=== PATIENT | male | born 1965 | race Caucasian/White ===

== ENCOUNTER 2016-09-12 20:07 | Emergency (ER) | payer MEDICAID ==
--- NOTE | 2016-09-12 20:37 | EDPHY ---
H & P Time Seen by Provider: 09/12/16 20:30 HPI/ROS: CHIEF COMPLAINT: Fever HISTORY OF PRESENT ILLNESS: The patient is a 50 year old male with esophageal cancer, presenting with fever that started around 5:30 p.m. this evening. The patient had last chemotherapy treatment 2 days ago. This evening he felt chilled with full body aches. He had a temperature of 100.7. Ongoing nausea since chemo, associated with decreased oral intake. The patient states this is his third fever since the beginning of the year. He is on his second round of chemotherapy. He receives chemotherapy once per week. This week he had radiation and chemotherapy. He did not receive flu vaccination this year. No sore throat, runny nose, cough, abdominal pain. REVIEW OF SYSTEMS: Aside from elements discussed in the HPI, a comprehensive 10-point review of systems was reviewed and is negative. Past Medical/Surgical History: Esophageal cancer, [place] 2006, Cardiac stents x3, Rotator cuff surgery, Back pain. Social History: Family at bedside. Smoking Status: Former smoker Physical Exam: General Appearance: Alert, nontoxic appearing Eyes: Pupils equal and round, no conjunctival pallor or injection ENT, Mouth: Mucous membranes moist Neck: Normal inspection Respiratory: Lungs are clear to auscultation Cardiovascular: Regular rate and rhythm Gastrointestinal: Abdomen is soft and non-tender Neurological: A&O, nonfocal exam Skin: Warm and dry, no rash Extremities: Nontender, no pedal edema Psychiatric: Mood and affect normal Constitutional: Initial Vital Signs Temperature (C) 37.3 C 09/12/16 20:09 Heart Rate 103 H 09/12/16 20:09 Respiratory Rate 18 09/12/16 20:09 Blood Pressure 96/72 L 09/12/16 20:09 O2 Sat (%) 94 09/12/16 20:09 O2 Delivery Mode Room Air Allergies/Adverse Reactions: haloperidol [Haloperidol] Allergy (Severe, Verified 09/12/16 20:13) Other-Enter Comments Home Medications: Medication Instructions Recorded Aspirin 06/01/16 Crestor 06/01/16 DEXILANT 06/01/16 Herbals/Supplements -Info Only 06/01/16 Lisinopril 06/01/16 Metoprolol Succinate 06/01/16 Plavix 06/01/16 TRILIPIX 06/01/16 oxyCODONE CR 09/30/16 Carboplatin 09/12/16 TaxoL 09/12/16 Medical Decision Making - Diagnostics Imaging: Study: X-ray of the chest was obtained. Results: No acute disease. Images were interpreted by the radiologist, Dr. Méndez. I viewed the images myself on the PACS system. ED Course/Re-evaluation: This patient presents with a low-grade fever. He is not neutropenic and there are no localizing signs of infection. Antibiotics are not indicated at this point. He also presents with dehydration related to nausea and chemotherapy. His blood pressure was slightly low on arrival and feel that this is most likely secondary to dehydration. IV normal saline 1 L was given. He felt better after IV fluids and his blood pressure normalized. He did not take nausea medications today and was encouraged to take nausea medicine tomorrow so that he could tolerate oral fluids well. He was encouraged to follow up with his oncologist tomorrow for recheck. Differential Diagnosis: Differential diagnosis includes UTI, pyelonephritis, pneumonia cholecystitis, influenza, cellulitis. - Data Points Laboratory Results: Laboratory Results 09/12/16 21:25 09/12/16 21:25 Medications Given: Discontinued Medications Acetaminophen (Tylenol) 650 mg PO EDNOW ONE Stop: 09/12/16 20:54 Last Admin: 09/12/16 21:12 Dose: 650 mg Sodium Chloride (Ns) 1,000 mls @ 0 mls/hr IV ONCE ONE PRN Reason: Wide Open Stop: 09/12/16 20:53 Last Admin: 09/12/16 21:35 Dose: 1,000 mls Departure - Departure Disposition: Home, Routine, Self-Care Clinical Impression: Fever Qualifiers: Fever type: other Qualifier Code: (R50.81) Fever presenting with conditions classified elsewhere Condition: Good Instructions: Fever in Adults (ED) Additional Instructions: Take Tylenol as needed for continued fever. Followup with your oncologist in 1-2 days. Return to the Emergency Department if symptoms worsen. Referrals: Susan Celis PA [Primary Care Provider] - As per Instructions Report Scribed for: Oanh Martinez Report Scribed by: Michaelle Spencer Date of Report: 09/12/16 Time of Report: 20:37 Physician Review and Approval Statement: 09/12/16 20:37 Portions of this note were transcribed by a certified medical technician assistant. I personally performed the history, physical exam, and medical decision-making; and confirmed the accuracy of the information in the transcribed note.
[2016-09-12] MEDS ORDERED: LETS SOLN TOPICAL 1 EA SYR TP ONE (20:51)
[2016-09-12] MEDS ORDERED: NS 1,000 ML IV ONE (20:52)
[2016-09-12] MEDS ORDERED: ACETAMINOPHEN 325 MG TAB PO ONE (20:53)
[2016-09-12 21:03] LABS: COLOR AMBER; LEUKOCYTE ESTERASE,URINE NEGATIVE (NEGATIVE); NITRITE,URINE NEGATIVE (NEGATIVE)
[2016-09-12 21:09] LABS: MUCUS 4+ /lpf (NONE-1+); RBC,URINE 25-50 /hpf (0-3)
[2016-09-12 21:17] VITALS: O2SAT 94
[2016-09-12 21:44] LABS: % IMMATURE GRANULYOCYTES 0.5 % (0.0-1.1); ABSOLUTE IMMATURE GRANULOCYTES 0.11 10^3/uL (0.00-0.10); ADD DIFF? NO; ADD MORPH? NO; ADD SCAN? NO; ATYPICAL LYMPHOCYTE FLAG 0 (0-99); FRAGMENT RBC FLAG 20 (0-99); HEMOGLOBIN 14.6 g/dL (13.7-17.5); LEFT SHIFT FLG 0 (0-99); LIPEMIA HEMOLYSIS FLAG 90 (0-99); MEAN CELL HEMOGLOBIN 28.8 pg (27.9-34.1); MEAN CELL HEMOGLOBIN CONCENTR. 34.8 g/dL (32.4-36.7); MEAN CELL VOLUME 82.8 fL (81.5-99.8); MEAN PLATELET VOLUME 10.2 fL (8.7-11.7); PLATELET CLUMPS FLAG 10 (0-99); PLATELET COUNT 202 10^3/uL (150-400); RED BLOOD CELL COUNT 5.07 10^6/uL (4.40-6.38); RED CELL DISTRIBUTION WIDTH 19.4 % (11.5-15.2)
--- NOTE | 2016-09-12 21:46 | DX ---
PA and Lateral Chest History: Fever and chills in a 50-year-old male recently treated with chemotherapy; meets sepsis cielo leong. Findings: The heart and mediastinal contours are normal. Pulmonary vascularity is normal. A tunneled right subclavian central venous catheter is in place. There is central peribronchial thickening. Mini mal streaky perihilar opacities are seen. There are no alveolar opacities seen to suggest pneumonia. Impression: Findings most consistent with bronchitis or viral pneumonitis are noted.
[2016-09-12 22:01] LABS: ANION GAP 14 mEq/L (8-16); CALCIUM 9.6 mg/dL (8.5-10.4); CARBON DIOXIDE 22 mEq/l (22-31); CHLORIDE 102 mEq/L (97-110); CREATININE 0.8 mg/dL (0.7-1.3); GLOMERULAR FILTRATION RATE > 60; GLUCOSE 104 mg/dL (70-100); POTASSIUM 4.3 mEq/L (3.5-5.2); SODIUM 138 mEq/L (134-144)
[2016-09-12 22:10] VITALS: BP 109/67; PULSE 80; RESP 20; TEMP 99
== END 2016-09-12 22:45 | disposition home or self-care (01) ==
DX: R50.9 Fever, unspecified (principal); C15.9 Malignant neoplasm of esophagus, unspecified; Z79.01 Long term (current) use of anticoagulants; Z79.82 Long term (current) use of aspirin; Z87.891 Personal history of nicotine dependence; I25.10 Atherosclerotic heart disease of native coronary artery without angina pectoris; I25.2 Old myocardial infarction; Z95.5 Presence of coronary angioplasty implant and graft

== ENCOUNTER 2017-01-31 01:42 | Emergency (ER) | payer MEDICAID ==
[2017-01-31] MEDS ORDERED: HYDROmorphONE/DILAUDID 1 MG/ML SYR IVP ONE ×5 (02:11→07:18)
[2017-01-31] MEDS ORDERED: NS 1,000 ML IV ONE ×2 (02:11→04:40)
[2017-01-31] MEDS ORDERED: ONDANSETRON 4 MG/2 ML VIAL IVP ONE (02:11)
--- NOTE | 2017-01-31 02:11 | EDPHY ---
H & P Stated Complaint: ABD PAIN ALL OVER STARTING TONIGHT HPI/ROS: HPI CHIEF COMPLAINT: Abdominal pain HISTORY OF PRESENT ILLNESS: Patient very pleasant 51-year-old male significant past medical history for stage IV esophageal cancer could not undergoing any chemotherapy at this time, presents emergency room with sudden onset of diffuse abdominal pain 10/10 severe crampy in nature that started around 11:00 p.m.. Has associated nausea. No chest pain or shortness of breath. No fever. Did have chills. States he had a normal bowel movement tonight. Past Medical History: Esophageal cancer, cardiac stents, rotator cuff, chronic pain, takes morphine Past Surgical History: Abdominal feeding tube Social History: Denies daily use drugs alcohol tobacco products Family History: Noncontributory ROS REVIEW OF SYSTEMS: A comprehensive 10 point review of systems is otherwise negative aside from elements mentioned in the history of present illness. Exam Constitutional triage nursing summary reviewed, vital signs reviewed, awake/ alert. Eyes normal conjunctivae and sclera, EOMI, PERRLA. HENT normal inspection, atraumatic, moist mucus membranes, no epistaxis, neck supple/ no meningismus, no raccoon eyes. Respiratory clear to auscultation bilaterally, normal breath sounds, no respiratory distress, no wheezing. Cardiovascular rate normal, regular rhythm, no murmur, no edema, distal pulses normal. Gastrointestinal tender palpation diffusely, no peritoneal signs, feeding tube in place, no signs of infection around the feeding tube, normal bowel sounds, no distension, no pulsatile mass. Genitourinary no CVA tenderness. Musculoskeletal no midline vertebral tenderness, full range of motion, no calf swelling, no tenderness of extremities, no meningismus, good pulses, neurovascularly intact. Skin pink, warm, & dry, no rash, skin atraumatic. Neurologic awake, alert and oriented x 3, AAOx3, moves all 4 extremities equally, motor intact, sensory intact, CN II-XII intact, normal cerebellar, normal vision, normal speech. Psychiatric normal mood/affect. Heme/Lymph/Immune no lymphadenopathy. Differential diagnosis includes but is not limited to and in no particular order : Bowel obstruction, appendicitis, gallbladder disease, diverticulitis, colitis , enteritis, perforated viscus, gastritis, GERD, esophagitis, urinary tract infection, pyelonephritis, kidney stones Medical Decision Making: Plan for this patient IV establishment, IV fluid bolus , IV Zofran for nausea, IV Dilaudid for acute pain control 2 mg. Check lactic acid, CT scan abdomen pelvis with IV contrast. Re-evaluation: 0358: CT scan of the abdomen pelvis with IV contrast The results of the study are this shows either enteritis or a mild small-bowel obstruction the distal ileum has some dilated areas of bowel loops. Otherwise no free air, no free fluid. Otherwise no acute inflammatory process except the distal esophagus consistent with esophageal cancer The study was read by Dr. Grace I viewed the images myself on the PACS system. 0507AM: Re-examination this time patient still having ongoing abdominal pain. No vomiting here. No diarrhea. Blood work and CT been reviewed. I will consult General surgery for this patient's possible SBO versus enteritis. Patient is requiring IV pain medicine. 0511AM: I have consult General surgery for evaluation of this patient's abdominal pain enteritis versus SBO. Dr. Ceron will come and see and evaluate the patient. 0553AM: Dr. Ceron: Has seen evaluated the patient. He recommends this patient does get admitted for observation bowel rest IV fluids and pain control. He also recommends this patient gets transferred to [facility] he is followed there for esophageal cancer. Dr. Lobo Sibley has accepted this patient to [facility]. I have discussed this with the patient and tell form filled out. Appropriate transfer be set up. Reason for transfer ongoing abdominal pain. Source: Patient - Personal History Current Tetanus/Diphtheria Vaccine: Yes Current Tetanus Diphtheria and Acellular Pertussis (TDAP): Yes - Medical/Surgical History Hx Asthma: No Hx Chronic Respiratory Disease: No Hx Diabetes: No Hx Cardiac Disease: Yes Hx Renal Disease: No Hx Cirrhosis: No Hx Alcoholism: No Hx HIV/AIDS: No Hx Splenectomy or Spleen Trauma: No Other PMH: [place] 2006, cardiac stent x 3, rotator cuff surgery, back pain, esophageal ca, - Social History Smoking Status: Former smoker Constitutional: Initial Vital Signs Temperature (C) 36.7 C 01/31/17 01:49 Heart Rate 68 01/31/17 01:49 Respiratory Rate 16 01/31/17 01:49 Blood Pressure 113/79 01/31/17 01:49 O2 Sat (%) 97 01/31/17 01:49 O2 Delivery Mode Room Air Allergies/Adverse Reactions: haloperidol [Haloperidol] Allergy (Severe, Verified 01/31/17 01:51) Other-Enter Comments Home Medications: Medication Instructions Recorded Omeprazole [Prilosec 20 mg] 20 mg PO DAILY 01/31/17 morphINE [Roxanol 10 mg/0.5 ml 30 mg PO Q2 01/31/17 oral soln (*)] Medical Decision Making - Data Points Laboratory Results: Laboratory Results 01/31/17 02:35 01/31/17 02:11 01/31/17 01/31/17 01/31/17 02:50 02:45 02:35 WBC RBC Hgb Hct MCV MCH MCHC RDW Plt Count MPV Neut % (Auto) Lymph % (Auto) [place] % (Auto) Eos % (Auto) Baso % (Auto) Nucleat RBC Rel Count Absolute Neuts (auto) Absolute Lymphs (auto) Absolute Monos (auto) Absolute Eos (auto) Absolute Basos (auto) Absolute Nucleated RBC Immature Gran % Immature Gran # PT 12.9 SEC SEC (12.0-15.0) INR 0.98 (0.83-1.16) APTT 22.3 SEC L SEC (23.0-38.0) VBG Lactic Acid 1.3 mmol/L mmol/L (0.7-2.1) Sodium Potassium Chloride Carbon Dioxide Anion Gap BUN Creatinine Estimated GFR Glucose Calcium Total Bilirubin Conjugated Bilirubin Unconjugated Bilirubin AST ALT Alkaline Phosphatase Troponin I Total Protein Albumin Lipase Urine Color YELLOW Urine Appearance TURBID Urine pH 8.0 H (5.0-7.5) Ur Specific [place] 1.019 (1.002-1.030) Urine Protein NEGATIVE (NEGATIVE) Urine Ketones NEGATIVE (NEGATIVE) Urine Blood NEGATIVE (NEGATIVE) Urine Nitrate NEGATIVE (NEGATIVE) Urine Bilirubin NEGATIVE (NEGATIVE) Urine Urobilinogen NEGATIVE EU EU (0.2-1.0) Ur Leukocyte Esterase NEGATIVE (NEGATIVE) Urine Glucose NEGATIVE (NEGATIVE) 01/31/17 01/31/17 01/31/17 02:35 02:35 02:11 WBC 9.39 10^3/uL 10^3/uL (3.80-9.50) RBC 4.69 10^6/uL 10^6/uL (4.40-6.38) Hgb 13.2 g/dL L g/dL (13.7-17.5) Hct 39.6 % L % (40.0-51.0) MCV 84.4 fL fL (81.5-99.8) MCH 28.1 pg pg (27.9-34.1) MCHC 33.3 g/dL g/dL (32.4-36.7) RDW 12.8 % % (11.5-15.2) Plt Count TNP MPV TNP Neut % (Auto) 84.2 % H % (39.3-74.2) Lymph % (Auto) 6.6 % L % (15.0-45.0) [place] % (Auto) 7.1 % % (4.5-13.0) Eos % (Auto) 1.6 % % (0.6-7.6) Baso % (Auto) 0.3 % % (0.3-1.7) Nucleat RBC Rel Count 0.0 % % (0.0-0.2) Absolute Neuts (auto) 7.90 10^3/uL H 10^3/uL (1.70-6.50) Absolute Lymphs (auto) 0.62 10^3/uL L 10^3/uL (1.00-3.00) Absolute Monos (auto) 0.67 10^3/uL 10^3/uL (0.30-0.80) Absolute Eos (auto) 0.15 10^3/uL 10^3/uL (0.03-0.40) Absolute Basos (auto) 0.03 10^3/uL 10^3/uL (0.02-0.10) Absolute Nucleated RBC 0.00 10^3/uL 10^3/uL (0-0.01) Immature Gran % 0.2 % % (0.0-1.1) Immature Gran # 0.02 10^3/uL 10^3/uL (0.00-0.10) PT INR APTT VBG Lactic Acid REJ Sodium 139 mEq/L mEq/L (134-144) Potassium 3.6 mEq/L mEq/L (3.5-5.2) Chloride 105 mEq/L mEq/L (97-110) Carbon Dioxide 24 mEq/l mEq/l (22-31) Anion Gap 10 mEq/L mEq/L (8-16) BUN 11 mg/dL mg/dL (7-23) Creatinine 0.6 mg/dL L mg/dL (0.7-1.3) Estimated GFR > 60 Glucose 130 mg/dL H mg/dL (70-100) Calcium 9.7 mg/dL mg/dL (8.5-10.4) Total Bilirubin 0.8 mg/dL mg/dL (0.1-1.4) Conjugated Bilirubin 0.4 mg/dL mg/dL (0.0-0.5) Unconjugated Bilirubin 0.4 mg/dL mg/dL (0.0-1.1) AST 24 IU/L IU/L (17-59) ALT 33 IU/L IU/L (21-72) Alkaline Phosphatase 116 IU/L IU/L (38-126) Troponin I < 0.012 ng/mL ng/mL (0-0.034) Total Protein 7.4 g/dL g/dL (6.3-8.2) Albumin 4.2 g/dL g/dL (3.5-5.0) Lipase 31.0 IU/L IU/L (23-300) Urine Color Urine Appearance Urine pH Ur Specific [place] Urine Protein Urine Ketones Urine Blood Urine Nitrate Urine Bilirubin Urine Urobilinogen Ur Leukocyte Esterase Urine Glucose Medications Given: Discontinued Medications Hydromorphone HCl (Dilaudid) 0.5 mg IVP EDNOW ONE Stop: 01/31/17 02:12 Last Admin: 01/31/17 04:28 Dose: Not Given Hydromorphone HCl (Dilaudid) 2 mg IVP EDNOW ONE Stop: 01/31/17 02:19 Last Admin: 01/31/17 03:02 Dose: 2 mg Hydromorphone HCl (Dilaudid) 2 mg IVP EDNOW ONE Stop: 01/31/17 04:13 Last Admin: 01/31/17 04:27 Dose: 2 mg Sodium Chloride (Ns) 1,000 mls @ 0 mls/hr IV ONCE ONE PRN Reason: Wide Open Stop: 01/31/17 02:12 Last Admin: 01/31/17 02:40 Dose: 1,000 mls Sodium Chloride (Ns) 1,000 mls @ 0 mls/hr IV ONCE ONE PRN Reason: Wide Open Stop: 01/31/17 04:41 Last Admin: 01/31/17 04:40 Dose: 1,000 mls Ondansetron HCl (Zofran) 4 mg IVP EDNOW ONE Stop: 01/31/17 02:12 Last Admin: 01/31/17 02:45 Dose: 4 mg Departure - Departure Disposition: Acute Care Hospital [facility] Clinical Impression: Abdominal pain Qualifiers: Abdominal location: generalized Qualified Code(s): R10.84 - Generalized abdominal pain Condition: Fair Referrals: [facility] [Other] - As per Instructions
[2017-01-31] MEDS ORDERED: IOPAMIDOL (ISOVUE-300) 100 ML BTL ONE (02:25)
[2017-01-31 02:44] LABS: % IMMATURE GRANULYOCYTES 0.2 % (0.0-1.1); ABSOLUTE IMMATURE GRANULOCYTES 0.02 10^3/uL (0.00-0.10); ADD DIFF? NO; ADD MORPH? NO; ADD SCAN? YES; ATYPICAL LYMPHOCYTE FLAG 0 (0-99); FRAGMENT RBC FLAG 0 (0-99); HEMATOCRIT 39.6 % (40.0-51.0); HEMOGLOBIN 13.2 g/dL (13.7-17.5); LEFT SHIFT FLG 0 (0-99); LIPEMIA HEMOLYSIS FLAG 80 (0-99); MEAN CELL HEMOGLOBIN 28.1 pg (27.9-34.1); MEAN CELL HEMOGLOBIN CONCENTR. 33.3 g/dL (32.4-36.7); MEAN CELL VOLUME 84.4 fL (81.5-99.8); RED BLOOD CELL COUNT 4.69 10^6/uL (4.40-6.38); RED CELL DISTRIBUTION WIDTH 12.8 % (11.5-15.2)
[2017-01-31 02:47] LABS: PLATELET CLUMPS FLAG 300 (0-99)
[2017-01-31 02:53] LABS: INR 0.98 (0.83-1.16); PROTIME(PATIENT) 12.9 SEC (12.0-15.0)
[2017-01-31 02:54] LABS: APTT 22.3 SEC (23.0-38.0)
[2017-01-31 02:54] LABS: COLOR YELLOW; LEUKOCYTE ESTERASE,URINE NEGATIVE (NEGATIVE); NITRITE,URINE NEGATIVE (NEGATIVE)
[2017-01-31 03:11] LABS: ALANINE AMINOTRANSFERASE 33 IU/L (21-72); ALBUMIN 4.2 g/dL (3.5-5.0); ALKALINE PHOSPHATASE 116 IU/L (38-126); ANION GAP 10 mEq/L (8-16); ASPARTATE AMINOTRANSFERASE 24 IU/L (17-59); BILIRUBIN,TOTAL 0.8 mg/dL (0.1-1.4); BILIRUBIN-CONJUGATED 0.4 mg/dL (0.0-0.5); BILIRUBIN-UNCONJUGATED 0.4 mg/dL (0.0-1.1); CALCIUM 9.7 mg/dL (8.5-10.4); CARBON DIOXIDE 24 mEq/l (22-31); CHLORIDE 105 mEq/L (97-110); CREATININE 0.6 mg/dL (0.7-1.3); GLOMERULAR FILTRATION RATE > 60; GLUCOSE 130 mg/dL (70-100); POTASSIUM 3.6 mEq/L (3.5-5.2); SODIUM 139 mEq/L (134-144); TOTAL PROTEIN 7.4 g/dL (6.3-8.2)
[2017-01-31 03:22] LABS: TROPONIN I < 0.012 ng/mL (0-0.034)
[2017-01-31 03:45] LABS: SCAN NEGATIVE
--- NOTE | 2017-01-31 06:15 | PDCONSULT ---
[employer] Note: Acute Care Surgery Consult Luis is a 51 y/o male with known stage IV esophogeal cancer treated at [facility] with chemo-radiation. He completed therapy in December and recently travelled to [place]. He came back on Saturday and slept all day yesterday. He awoke at around midnight last night with abdominal pain and came to the ED at [facility] and was seen by Dr. Mcconnell. After obtaining lab and imaging studies surgical consultation was requested. Luis reports the pain to be upper/central in location. He reports nausea but denies diarrhea. He has had no fever. PMH: gastro-jejunal tube placement all: Haldol former smoker/drinker, reports drinking in [place]-but not to excess SH: here with mother ROS: + weight loss related to treatment + chronic thoracic pain requiring Morphine PE: chronically ill appearing male Negative icterus/adenopathy Lungs: clear CVS: RRR abd: soft/hypoactive bowel sounds diffuse mild upper abdominal tenderness without guarding no focal tenderness, no RLQ tenderness, negative Rovsing's sign no mass indwelling feeding tube epigastrium CT reviewed: gastro-jejunal tube in place and without complication liver/GB normal, pancreas normal, small appendicolith without dede-appendiceal inflammation mild distal ileal wall thickening/inflammation c/w enteritis-cannot exclude ischemia wbc/CMP wnl Imp: abdominal pain unclear etiology/non-surgical abdomen-incidental appendicolith/possible enteritis stage IV esophogeal CA with indwelling gastrojejunal tube Rec: admit for observation, IV fluids and comfort measures\ no beds available at [facility] currently I recommended transfer to [facility] for further care and management Morris Ceron MD, FACS
[2017-01-31 06:58] VITALS: RESP 16
[2017-01-31 07:29] VITALS: BP 122/72; PULSE 53; TEMP 97.3; O2SAT 98
== END 2017-01-31 07:39 | disposition short-term general hospital (02) ==
DX: R10.84 Generalized abdominal pain (principal); Z85.01 Personal history of malignant neoplasm of esophagus; Z87.891 Personal history of nicotine dependence; Z95.5 Presence of coronary angioplasty implant and graft
CPT/HCPCS: 96374; J1170; J2405; Q9967

== ENCOUNTER 2017-02-10 13:45 | Emergency (ER) | payer MEDICAID ==
[2017-02-10 13:54] VITALS: TEMP 97.9
--- NOTE | 2017-02-10 14:55 | EDPHY ---
H & P Time Seen by Provider: 02/10/17 14:16 HPI/ROS: CHIEF COMPLAINT: Nausea, vomiting HISTORY OF PRESENT ILLNESS: Patient is a 51-year-old male with esophageal cancer on palliative care who presents to the emergency department with nausea and vomiting. Patient states he was horsing around with a friend last evening and fell striking the ground with his right side and right face. He felt dazed but did not lose consciousness. He has a mild headache. No neck pain Patient states he began to feel nauseated yesterday prior to the fall after eating popcorn. The patient has a feeding tube in place that is on a pump 24 hours a day. He is able to still tolerate solid foods. Last night he developed increased nausea and vomiting. Patient also reports pus discharge from around his feeding tube. This started after he last had his tube changed last . He has mild abdominal discomfort. No fevers or chills. REVIEW OF SYSTEMS: My complete review of systems is negative except as mentioned in the HPI. Past Medical/Surgical History: Includes esophageal cancer, ACS, acute LA, Past surgical history: Includes cardiac stent, rotator cuff repair Smoking Status: Former smoker Physical Exam: Vitals noted GENERAL: Well-appearing, in no acute distress, alert. Green aragon. HEENT: Eyes normal to inspection, normal pharynx, no signs of dehydration. NECK: No thyromegaly, no lymphadenopathy, supple. RESPIRATORY: Clear to auscultation bilaterally, no rales, rhonchi or wheezing. CVS: Regular rate and rhythm, no rubs, murmurs, or gallops. ABDOMEN: Soft, feeding tube in place, pus discharge around the tube, No erythema, nondistended, no organomegaly. BACK: Normal to inspection, no CVA tenderness. SKIN: Normal color, no rash, warm, dry. No pallor. EXTREMITIES: No pedal edema, no calf tenderness, no Homans sign or cords, no joint swelling. NEURO/PSYCH: Alert and oriented, normal mood and affect, normal motor sensory exam. Constitutional: Initial Vital Signs Temperature (C) 36.6 C 02/10/17 13:50 Heart Rate 78 02/10/17 13:50 Respiratory Rate 18 02/10/17 13:50 Blood Pressure 104/68 02/10/17 13:50 O2 Sat (%) 92 02/10/17 13:50 O2 Delivery Mode Room Air Allergies/Adverse Reactions: haloperidol [Haloperidol] Allergy (Severe, Verified 02/10/17 13:48) Other-Enter Comments Home Medications: Medication Instructions Recorded Omeprazole [Prilosec 20 mg] 20 mg PO DAILY 01/31/17 morphINE [Roxanol 10 mg/0.5 ml 30 mg PO Q2 01/31/17 oral soln (*)] Medical Decision Making - Diagnostics Imaging Results: Imaging Impressions Abdomen CT 02/10/17 14:57 Impression: 1. Distal esophageal cancer, with fluid and thickening of the distal esophagogastric junction. 2. Jejunostomy tube in the distal duodenum. 3. No small bowel obstruction or colonic obstruction. 4. Mild constipation. Findings and recommendations discussed with Emergency Department physician, Funmi Yost M.D., at 1727 hours, on February 10, 2017. Final report concurs with initial preliminary interpretation. Head CT 02/10/17 14:57 Impression: 1. Normal CT brain, without contrast. 2. No epidural or subdural hematoma. Findings and recommendations discussed with Emergency Department physician, Funmi Yost M.D., at 1723 hours, on February 10, 2017. Final report concurs with initial preliminary interpretation. ED Course/Re-evaluation: In the emergency department I met the patient on arrival. I discussed the plan with the patient. IV was placed. Patient had laboratory studies drawn. Head CT was ordered due to the fall. Patient had an abdominal pelvic CT due to his feeding tube in the pus discharge. Patient was given Zofran 4 mg IV. I reviewed the patient's laboratory studies. He was mildly anemic. White count was normal. Chemistry panel is unremarkable. Urine was negative. Lipase was 16. CT of the abdomen pelvis: Please refer to the dictated report. The patient has no abscess or lesion noted. The tube appears to be in correct placement. I discussed the results with the patient. I answered all his questions. I paged Dr. Redd to inform of the pus discharge around the tube. Dr. Redd was re-paged. I spoke with Dr. Weiss who was on-call for Dr. Redd. I described the presentation and the findings. He recommended having the patient follow up with Dr. Redd's office. He felt the patient could be d/c from the ED. Patient's dressing was changed. I rechecked the patient on numerous occasions. He was stable throughout his stay. Differential Diagnosis: My differential includes but is not limited to subarachnoid hemorrhage, subdural hematoma, epidural hematoma, concussion, small-bowel obstruction, perforation, feeding to malfunction, cellulitis, abscess, bacteremia, sepsis, electrolyte abnormality, sugar abnormality - Data Points Laboratory Results: Laboratory Results 02/10/17 15:20 02/10/17 15:20 02/10/17 02/10/17 02/10/17 15:20 15:20 15:20 WBC 7.40 10^3/uL 10^3/uL (3.80-9.50) RBC 4.17 10^6/uL L 10^6/uL (4.40-6.38) Hgb 11.7 g/dL L g/dL (13.7-17.5) Hct 35.5 % L % (40.0-51.0) MCV 85.1 fL fL (81.5-99.8) MCH 28.1 pg pg (27.9-34.1) MCHC 33.0 g/dL g/dL (32.4-36.7) RDW 12.6 % % (11.5-15.2) Plt Count 257 10^3/uL 10^3/uL (150-400) MPV 10.3 fL fL (8.7-11.7) Neut % (Auto) 72.3 % % (39.3-74.2) Lymph % (Auto) 11.4 % L % (15.0-45.0) [place] % (Auto) 10.9 % % (4.5-13.0) Eos % (Auto) 4.5 % % (0.6-7.6) Baso % (Auto) 0.5 % % (0.3-1.7) Nucleat RBC Rel Count 0.0 % % (0.0-0.2) Absolute Neuts (auto) 5.35 10^3/uL 10^3/uL (1.70-6.50) Absolute Lymphs (auto) 0.84 10^3/uL L 10^3/uL (1.00-3.00) Absolute Monos (auto) 0.81 10^3/uL H 10^3/uL (0.30-0.80) Absolute Eos (auto) 0.33 10^3/uL 10^3/uL (0.03-0.40) Absolute Basos (auto) 0.04 10^3/uL 10^3/uL (0.02-0.10) Absolute Nucleated RBC 0.00 10^3/uL 10^3/uL (0-0.01) Immature Gran % 0.4 % % (0.0-1.1) Immature Gran # 0.03 10^3/uL 10^3/uL (0.00-0.10) PT 13.4 SEC SEC (12.0-15.0) INR 1.03 (0.83-1.16) APTT 31.9 SEC SEC (23.0-38.0) Sodium 136 mEq/L mEq/L (134-144) Potassium 4.1 mEq/L mEq/L (3.5-5.2) Chloride 101 mEq/L mEq/L (97-110) Carbon Dioxide 27 mEq/l mEq/l (22-31) Anion Gap 8 mEq/L mEq/L (8-16) BUN 21 mg/dL mg/dL (7-23) Creatinine 0.8 mg/dL mg/dL (0.7-1.3) Estimated GFR > 60 Glucose 112 mg/dL H mg/dL (70-100) Calcium 9.5 mg/dL mg/dL (8.5-10.4) Total Bilirubin 0.4 mg/dL mg/dL (0.1-1.4) Conjugated Bilirubin 0.1 mg/dL mg/dL (0.0-0.5) Unconjugated Bilirubin 0.3 mg/dL mg/dL (0.0-1.1) AST 19 IU/L IU/L (17-59) ALT 33 IU/L IU/L (21-72) Alkaline Phosphatase 95 IU/L IU/L (38-126) Total Protein 7.0 g/dL g/dL (6.3-8.2) Albumin 3.9 g/dL g/dL (3.5-5.0) Lipase 16.0 IU/L L IU/L (23-300) Urine Color Urine Appearance Urine pH Ur Specific [place] Urine Protein Urine Ketones Urine Blood Urine Nitrate Urine Bilirubin Urine Urobilinogen Ur Leukocyte Esterase Urine Glucose 02/10/17 15:00 WBC RBC Hgb Hct MCV MCH MCHC RDW Plt Count MPV Neut % (Auto) Lymph % (Auto) [place] % (Auto) Eos % (Auto) Baso % (Auto) Nucleat RBC Rel Count Absolute Neuts (auto) Absolute Lymphs (auto) Absolute Monos (auto) Absolute Eos (auto) Absolute Basos (auto) Absolute Nucleated RBC Immature Gran % Immature Gran # PT INR APTT Sodium Potassium Chloride Carbon Dioxide Anion Gap BUN Creatinine Estimated GFR Glucose Calcium Total Bilirubin Conjugated Bilirubin Unconjugated Bilirubin AST ALT Alkaline Phosphatase Total Protein Albumin Lipase Urine Color YELLOW Urine Appearance HAZY Urine pH 6.0 (5.0-7.5) Ur Specific [place] 1.029 (1.002-1.030) Urine Protein NEGATIVE (NEGATIVE) Urine Ketones NEGATIVE (NEGATIVE) Urine Blood NEGATIVE (NEGATIVE) Urine Nitrate NEGATIVE (NEGATIVE) Urine Bilirubin NEGATIVE (NEGATIVE) Urine Urobilinogen NEGATIVE EU EU (0.2-1.0) Ur Leukocyte Esterase NEGATIVE (NEGATIVE) Urine Glucose NEGATIVE (NEGATIVE) Medications Given: Discontinued Medications Ondansetron HCl (Zofran) 4 mg IVP EDNOW ONE Stop: 02/10/17 14:57 Last Admin: 02/10/17 15:53 Dose: 4 mg Departure - Departure Disposition: Home, Routine, Self-Care Clinical Impression: Fall Qualifiers: Encounter type: initial encounter Qualified Code(s): W19.XXXA - Unspecified fall, initial encounter Nausea & vomiting Qualifiers: Vomiting type: unspecified Vomiting Intractability: non-intractable Qualified Code(s): R11.2 - Nausea with vomiting, unspecified Condition: Good Instructions: Fall Prevention (ED), Acute Nausea and Vomiting (ED) Additional Instructions: Return with increasing pain, fever, or any other concerns. You need follow-up with her oncologist, Dr. Redd to to recheck your tube. Referrals: Tramaine Underwood [Other] - 2-3 days, call for appt.
[2017-02-10] MEDS ORDERED: ONDANSETRON 4 MG/2 ML VIAL IVP ONE (14:56)
[2017-02-10 15:38] LABS: % IMMATURE GRANULYOCYTES 0.4 % (0.0-1.1); ABSOLUTE IMMATURE GRANULOCYTES 0.03 10^3/uL (0.00-0.10); ADD DIFF? NO; ADD MORPH? NO; ADD SCAN? NO; ATYPICAL LYMPHOCYTE FLAG 10 (0-99); FRAGMENT RBC FLAG 0 (0-99); HEMATOCRIT 35.5 % (40.0-51.0); HEMOGLOBIN 11.7 g/dL (13.7-17.5); LEFT SHIFT FLG 0 (0-99); LIPEMIA HEMOLYSIS FLAG 80 (0-99); MEAN CELL HEMOGLOBIN 28.1 pg (27.9-34.1); MEAN CELL VOLUME 85.1 fL (81.5-99.8); MEAN PLATELET VOLUME 10.3 fL (8.7-11.7); PLATELET CLUMPS FLAG 0 (0-99); PLATELET COUNT 257 10^3/uL (150-400); RED BLOOD CELL COUNT 4.17 10^6/uL (4.40-6.38); RED CELL DISTRIBUTION WIDTH 12.6 % (11.5-15.2)
[2017-02-10 15:49] LABS: INR 1.03 (0.83-1.16); PROTIME(PATIENT) 13.4 SEC (12.0-15.0)
[2017-02-10 15:50] LABS: APTT 31.9 SEC (23.0-38.0)
[2017-02-10 15:53] LABS: COLOR YELLOW; LEUKOCYTE ESTERASE,URINE NEGATIVE (NEGATIVE); NITRITE,URINE NEGATIVE (NEGATIVE)
[2017-02-10 16:08] LABS: ALANINE AMINOTRANSFERASE 33 IU/L (21-72); ALBUMIN 3.9 g/dL (3.5-5.0); ALKALINE PHOSPHATASE 95 IU/L (38-126); ANION GAP 8 mEq/L (8-16); ASPARTATE AMINOTRANSFERASE 19 IU/L (17-59); BILIRUBIN,TOTAL 0.4 mg/dL (0.1-1.4); BILIRUBIN-CONJUGATED 0.1 mg/dL (0.0-0.5); BILIRUBIN-UNCONJUGATED 0.3 mg/dL (0.0-1.1); CALCIUM 9.5 mg/dL (8.5-10.4); CARBON DIOXIDE 27 mEq/l (22-31); CHLORIDE 101 mEq/L (97-110); CREATININE 0.8 mg/dL (0.7-1.3); GLOMERULAR FILTRATION RATE > 60; GLUCOSE 112 mg/dL (70-100); POTASSIUM 4.1 mEq/L (3.5-5.2); SODIUM 136 mEq/L (134-144)
[2017-02-10] MEDS ORDERED: IOPAMIDOL (ISOVUE-300) 100 ML BTL ONE (16:36)
[2017-02-10 19:56] VITALS: BP 83/52; PULSE 58; RESP 16; O2SAT 94
== END 2017-02-10 19:56 | disposition home or self-care (01) ==
DX: R11.2 Nausea with vomiting, unspecified (principal); I25.2 Old myocardial infarction; Z85.01 Personal history of malignant neoplasm of esophagus; Z87.891 Personal history of nicotine dependence; Z95.5 Presence of coronary angioplasty implant and graft; W18.09XA Striking against other object with subsequent fall, initial encounter
CPT/HCPCS: 96374; J1642; J2405; Q9967